=== PATIENT | female | born 1990 | race Two or more races ===

== ENCOUNTER → 2024-08-14 | Outpatient (CLI) | payer BC, SELFPAY | END | disposition home or self-care (01) | PROVIDERS: Referring Provider Family Medicine; Visit Provider Family Medicine | DX: N39.0 Urinary tract infection, site not specified (principal) | CPT/HCPCS: 87077; 87086; 87186 ==

== ENCOUNTER → 2024-08-19 | Outpatient (CLI) | payer BC, SELFPAY ==
[2024-08-19 10:53] LABS: Basophils # (Auto) 0.1 Thou/mm3 (0.0-0.2); Basophils % (Auto) 1 % (0-2.5); Eosinophils # (Auto) 0.2 Thou/mm3 (0.0-0.5); Eosinophils % (Auto) 5 % (0-10); Hemoglobin 12.6 g/dL (12.0-16.0); Immature Granulocytes % (Auto) 0 % (0-0); Immature Granulocytes Auto 0.01 Thou/mm3 (0.00-0.00); Lymphocytes # (Auto) 1.5 Thou/mm3 (1.0-4.8); Lymphocytes % (Auto) 33 % (10-50); Mean Corpuscular HGB Conc 32.3 g/dl (31.0-37.0); Mean Corpuscular Volume 74 fL (80-100); Monocytes # (Auto) 0.3 Thou/mm3 (0.0-0.8); Monocytes % (Auto) 7 % (0-12); Neutrophils # (Auto) 2.5 Thou/mm3 (1.8-7.7); Neutrophils % (Auto) 54 % (37-80); Nucleated Red Blood Cell % 0 /100 WBC (0); Platelet Count 271 Thou/mm3 (140-440); RDW Standard Deviation 39.6 fL (36.4-46.3); Red Blood Count 5.25 Miln/mm3 (4.00-5.20); White Blood Count 4.6 Thou/mm3 (3.6-11.0)
[2024-08-19 11:11] LABS: Vitamin D 25 Hydroxy Total 21.9 ng/mL (7.3-40.2)
[2024-08-19 11:24] LABS: Albumin, Serum 4.4 gm/dL (3.5-5.0); Albumin/Globulin Ratio 1.8 (1.2-2.2); Alkaline Phosphatase 68 U/L (46-116); Anion Gap 7 (7-16); Aspartate Amino Transferase 17 U/L (0-34); BUN/Creatinine Ratio 11 Ratio (12-20); Bilirubin,Total 0.5 mg/dL (0.3-1.2); Blood Urea Nitrogen 9 mg/dL (9-23); Calcium 9.3 mg/dL (8.3-10.6); Calcium (Corrected) 9.3 mg/dL (8.5-10.1); Carbon Dioxide 24.8 mMol/L (20.0-31.0); Chloride 110 mMol/L (98-107); Cholesterol 151 mg/dL (132-200); Creatinine (Component) 0.8 mg/dL (0.6-1.3); Free T4 (Free Thyroxine) 1.13 ng/dL (0.89-1.76); Globulin 2.4 gm/dL (2.3-3.5); Glucose 92 mg/dL (74-106); HDL Cholesterol 51 mg/dL (40-60); LDL Cholesterol,Calculated 81 mg/dL (0-130); Osmolality,Calculated 281 (275-295); Potassium 4.5 mMol/L (3.4-5.1); Sodium 142 mMol/L (136-145); Thyroid Stimulating Hormone 1.64 uIU/mL (0.55-4.78); Total Protein 6.8 gm/dL (5.7-8.2); Triglycerides 94 mg/dL (30-150); eGFR > 60 See Note
[2024-08-19 11:29] LABS: Alanine Aminotransferase 13 U/L (10-49)
== END | disposition home or self-care (01) ==
LOC: COPL 09:43
PROVIDERS: PCP Family Medicine; Referring Provider Family Medicine; Visit Provider Family Medicine
DX: Z13.1 Encounter for screening for diabetes mellitus (principal); E78.1 Pure hyperglyceridemia; E03.2 Hypothyroidism due to medicaments and other exogenous substances; D50.0 Iron deficiency anemia secondary to blood loss (chronic)
CPT/HCPCS: 36415; 80053; 80061; 82306; 84439; 84443; 85025

== ENCOUNTER → 2025-01-12 | Outpatient (CLI) | payer BC, SELFPAY ==
[2025-01-12 11:37] LABS: Basophils # (Auto) 0.0 Thou/mm3 (0.0-0.2); Basophils % (Auto) 1 % (0-2.5); Eosinophils # (Auto) 0.2 Thou/mm3 (0.0-0.5); Eosinophils % (Auto) 3 % (0-10); Hematocrit 40.6 % (36.0-46.0); Hemoglobin 13.1 g/dL (12.0-16.0); Immature Granulocytes Auto 0.02 Thou/mm3 (0.00-0.00); Lymphocytes # (Auto) 1.7 Thou/mm3 (1.0-4.8); Lymphocytes % (Auto) 28 % (10-50); Mean Corpuscular HGB Conc 32.3 g/dl (31.0-37.0); Mean Corpuscular Hemoglobin 24.3 pg (25.0-35.0); Mean Corpuscular Volume 76 fL (80-100); Monocytes # (Auto) 0.4 Thou/mm3 (0.0-0.8); Monocytes % (Auto) 6 % (0-12); Neutrophils # (Auto) 3.8 Thou/mm3 (1.8-7.7); Neutrophils % (Auto) 63 % (37-80); Nucleated Red Blood Cell # 0.00 Thou/mm3 (0.00-0.00); Nucleated Red Blood Cell % 0 /100 WBC (0); Platelet Count 243 Thou/mm3 (140-440); RDW Standard Deviation 41.3 fL (36.4-46.3); Red Blood Count 5.38 Miln/mm3 (4.00-5.20); White Blood Count 6.0 Thou/mm3 (3.6-11.0)
[2025-01-12 11:56] LABS: Alanine Aminotransferase 12 U/L (10-49); Albumin, Serum 4.5 gm/dL (3.5-5.0); Albumin/Globulin Ratio 1.7 (1.2-2.2); Alkaline Phosphatase 64 U/L (46-116); Anion Gap 6 (7-16); Aspartate Amino Transferase 18 U/L (0-34); BUN/Creatinine Ratio 11 Ratio (12-20); Bilirubin,Total 0.5 mg/dL (0.3-1.2); Blood Urea Nitrogen 10 mg/dL (9-23); Calcium 9.2 mg/dL (8.3-10.6); Calcium (Corrected) 9.2 mg/dL (8.5-10.1); Carbon Dioxide 23.5 mMol/L (20.0-31.0); Cardiac Risk Estimate 3.5 RATIO (3.7-5.6); Chloride 111 mMol/L (98-107); Cholesterol 154 mg/dL (132-200); Creatinine (Component) 0.9 mg/dL (0.6-1.3); Free T4 (Free Thyroxine) 1.09 ng/dL (0.89-1.76); Globulin 2.6 gm/dL (2.3-3.5); Glucose 100 mg/dL (74-106); HDL Cholesterol 44 mg/dL (40-60); LDL Cholesterol,Calculated 90 mg/dL (0-130); Osmolality,Calculated 278 (275-295); Potassium 4.3 mMol/L (3.4-5.1); Sodium 140 mMol/L (136-145); Thyroid Stimulating Hormone 1.59 uIU/mL (0.55-4.78); Total Protein 7.1 gm/dL (5.7-8.2); Triglycerides 102 mg/dL (30-150); eGFR > 60 See Note
== END | disposition home or self-care (01) ==
LOC: COPL 10:48
PROVIDERS: PCP Family Medicine; Referring Provider Family Medicine; Visit Provider Family Medicine
DX: Z13.1 Encounter for screening for diabetes mellitus (principal); D50.0 Iron deficiency anemia secondary to blood loss (chronic); E03.2 Hypothyroidism due to medicaments and other exogenous substances; E78.1 Pure hyperglyceridemia
CPT/HCPCS: 36415; 80053; 80061; 84439; 84443; 85025

== ENCOUNTER → 2025-01-20 | Outpatient (CLI) | payer BC, SELFPAY | END | disposition home or self-care (01) | LOC: SLDO 14:35 | PROVIDERS: PCP Family Medicine; Referring Provider Family Medicine; Visit Provider Family Medicine | DX: N39.0 Urinary tract infection, site not specified (principal) | CPT/HCPCS: 87086 ==

== ENCOUNTER → 2025-01-29 | Outpatient (BNVA) | payer BC, SELFPAY | END | disposition home or self-care (01) | PROVIDERS: PCP Family Medicine; Referring Provider Family Medicine; Visit Provider Urology | DX: G89.4 Chronic pain syndrome (principal); R10.2 Pelvic and perineal pain; R33.9 Retention of urine, unspecified; R35.0 Frequency of micturition; R35.1 Nocturia; I35.0 Nonrheumatic aortic (valve) stenosis | CPT/HCPCS: 81003; 99212; G0463 ==

== ENCOUNTER → 2025-02-12 | Outpatient (CLI) | payer BC, SELFPAY ==
[2025-02-12 11:46] LABS: Basophils # (Auto) 0.1 Thou/mm3 (0.0-0.2); Basophils % (Auto) 1 % (0-2.5); Eosinophils # (Auto) 0.2 Thou/mm3 (0.0-0.5); Eosinophils % (Auto) 3 % (0-10); Hematocrit 38.9 % (36.0-46.0); Hemoglobin 12.7 g/dL (12.0-16.0); Immature Granulocytes Auto 0.03 Thou/mm3 (0.00-0.00); Lymphocytes # (Auto) 1.7 Thou/mm3 (1.0-4.8); Lymphocytes % (Auto) 28 % (10-50); Mean Corpuscular HGB Conc 32.6 g/dl (31.0-37.0); Mean Corpuscular Hemoglobin 24.5 pg (25.0-35.0); Mean Corpuscular Volume 75 fL (80-100); Monocytes # (Auto) 0.4 Thou/mm3 (0.0-0.8); Monocytes % (Auto) 7 % (0-12); Neutrophils # (Auto) 3.7 Thou/mm3 (1.8-7.7); Neutrophils % (Auto) 61 % (37-80); Nucleated Red Blood Cell # 0.00 Thou/mm3 (0.00-0.00); Nucleated Red Blood Cell % 0 /100 WBC (0); Platelet Count 363 Thou/mm3 (140-440); RDW Standard Deviation 41.3 fL (36.4-46.3); Red Blood Count 5.19 Miln/mm3 (4.00-5.20); White Blood Count 6.1 Thou/mm3 (3.6-11.0)
== END | disposition home or self-care (01) ==
LOC: COPL 10:57
PROVIDERS: PCP Family Medicine; Referring Provider Family Medicine; Visit Provider Family Medicine
DX: A41.51 Sepsis due to Escherichia coli [E. coli] (principal)
CPT/HCPCS: 36415; 85025; 87040

== ENCOUNTER 2025-02-25 06:30 | Day surgery (SDC) | payer BC, SELFPAY ==
[2025-02-24 14:47] VITALS: BMI 31.3
[2025-02-24 17:37] LABS: HCG,Qualitative Serum Negative
[2025-02-24 22:23] LABS: Anion Gap 10 (7-16); BUN/Creatinine Ratio 9 Ratio (12-20); Blood Urea Nitrogen 9 mg/dL (9-23); Calcium 9.4 mg/dL (8.3-10.6); Carbon Dioxide 25.1 mMol/L (20.0-31.0); Chloride 107 mMol/L (98-107); Creatinine (Component) 1.0 mg/dL (0.6-1.3); Estimated Creatinine Clearance 82.5 mL/min (>60); Glucose 89 mg/dL (74-106); Osmolality,Calculated 280 (275-295); Potassium 4.0 mMol/L (3.4-5.1); Sodium 142 mMol/L (136-145); eGFR > 60 See Note
[2025-02-25] VITALS (8 sets, daily range): BP systolic 126–151; BP diastolic 95–106; PULSE 85–98; RESP 12–21; TEMP 36.6–37.1; O2SAT 97–100; BMI 31.4
--- NOTE | 2025-02-25 07:17 | XR_ITS ---
Examination: Retrograde pyelogram left, with without KUB 4 spot fluoroscopic abdomen films Fluoroscopy Date and time: February 25, 2025 0932 hours INDICATIONS: History abdominal pain flank pain, 4 mm lower pole left renal calculus on abdomen film 03/11/2024, stone manipulation and stent placement FINDINGS: Opacification of mildly dilated left renal collecting system Left ureteral stent satisfactory position Fluoroscopy 38 seconds radiation dose 8.37 milligray IMPRESSION: Left retrograde pyelogram as above
--- NOTE | 2025-02-25 07:30 | CHAP ---
Patient was very nervous. Gave words of assurance and prayer.
[2025-02-25] MEDS: VANCOMYCIN/NS 1 GM IVPB 200 ML IV (07:46)
[2025-02-25] MEDS: RINGERS LACTATED 1000 ML 1,000 ML 20 ML IV (07:50)
--- NOTE | 2025-02-25 10:10 | SUR.PHASEI ---
1010 Patient arrived to recovery resting comfortably in [facility], drowsy and able to arouse with verbal prompting, on oxygen 4L via nasal cannula, breathing unlabored, vital signs stable, denies pain and nausea, report received from Tang MARES and Dr. Roy
--- NOTE | 2025-02-25 10:49 | PD.SUROPNT ---
Date of Procedure 02/25/25 Pre Op Diagnosis Left flank pain, 5 mm stone left distal ureter, left hydronephrosis, chronic pelvic pain syndrome Post Op Diagnosis Same plus early changes of interstitial cystitis, impacted stone left distal ureter Procedure Cystoscopic examination Magness dilation for diagnostic and therapeutic purposes, left retrograde pyelogram, placement of safety wire left, laser stone fragmentation, stone basketing and stent placement left under fluoroscopic examination Findings Impacted stone left distal ureter, left hydronephrosis Procedure Description Indication for procedure this is a 35-year-old female, she has a history of pelvic discomfort with the frequency for 5 weeks duration she had gone to the emergency room in [facility] had a CAT scan of the abdomen and pelvis done she was found to have 5 to 6 mm stone distal ureter with hydronephrosis. Patient bacteremia a urine cultures have grown E. coli she was treated with antibiotics. Patient came to see me she was recommended cystoscopic examination left retrograde pyelogram ureteroscopy laser stone fragmentation placement of the stent procedure and complications were discussed with the patient in great detail informed consent is obtained Procedure patient was brought to the operating room in a satisfactory condition after appropriate premedication she was appropriately identified by surgeon operating room staff site scope and indication of the procedure were reconfirmed with the patient informed consent is obtained. Patient was placed operating table in a supine position general anesthesia was given uneventfully at this time patient received perioperative antibiotics and a 20 mg of Lasix IV was given for diuresis and prevention of pyelocalyceal infectious complications. 21 cystoscope was used to do the cystourethroscopy urethra revealed no stricture Bladder was filled with 300 cc of water drained cystoscope was done again there was early changes of interstitial cystitis. Next examination of bladder and of the quadrant revealed no tumor stone or diverticula. There was a efflux of clear urine from the right side there was no urine coming out of the left side. Next I passed the open-ended Pollick catheter into left ureteral orifice. It will not go beyond the stone. I was able to place a safety wire into the upper pole calyx. Open-ended Pollick catheter was removed. Next I passed the semirigid ureteroscope I was able to visualize the stone and dislodge it. With the 200 ?m laser fiber I was able to fragment the stone into multiple pieces. With the stone basketing I was able to remove stone fragmentation about 10 passes were made to get the stone fragments out. Next retrograde pyelogram was performed to assess the integrity of the collecting system there was no injury identified. Next over the safety wire I placed 24 cm long 6 Portuguese double-J stent proximal and in the renal pelvis and distal and in the bladder bladder was emptied instrument was withdrawn gently patient after having tolerated the procedure well was discharged home to be followed in urology office for stent removal Anesthesia GETA Pathology / specimen None Estimated Blood Loss 0.2 Condition Stable Disposition PACU Surgeon Julianne Garcia MD Surgical Staff Operation Date: 02/25/25 08:30 Case Staff Anesthesiologist: Kd Roy
--- NOTE | 2025-02-25 11:22 | SUR.PHASEII ---
1122 Patient meets discharge criteria from recovery, awake and alert, breathing unlabored, vital signs stable, denies pain, eating ice chips; denies nausea, voided in the restroom prior to discharge, assisted with dressing into her clothing by her , discharge instructions given to patient, patients mother and , signed discharge instructions. Patient given all her belongings prior to discharge, transported via wheelchair and left in a private vehicle.
== END 2025-02-25 11:22 | disposition home or self-care (01) ==
PROVIDERS: Anesthesiology; PCP Family Medicine; Referring Provider Urology; Visit Provider Urology
PROC: 0TJB8ZZ Inspection of Bladder, Via Natural or Artificial Opening Endoscopic (ICD-10-PCS; CPT 52000; principal; 2025-02-25 08:30)
DX: N13.2 Hydronephrosis with renal and ureteral calculous obstruction (principal); N30.10 Interstitial cystitis (chronic) without hematuria
CPT/HCPCS: 52356; 36415; 74420; 80048; 82365; 84703; A4217; A4649; C1769; C1889; C1894; C2617; J0131; J1100; J1580; J1938; J2250; J2371; J2704; J2765; J3010; J3373; J3490; J7120; J1805

== ENCOUNTER 2025-02-26 02:18 | Emergency (ER) | payer BC, SELFPAY ==
[2025-02-26 02:19] VITALS: BMI 31.2
[2025-02-26 02:53] VITALS: BP 137/91; PULSE 91; RESP 17; TEMP 36.8; O2SAT 98
--- NOTE | 2025-02-26 02:54 | PD.EDABDPN ---
ED Abdominal Pain RME/HPI General Chief Complaint: Abdominal Pain Stated complaint: ABD PAIN, HX KIDNEY STONES W STENT PLACED 02/25 Time seen by provider: 02/26/25 02:59 Arrival date/time: 02/26/25 02:18 RME / HPI RME / HPI narrative: See MDM for Dr. Cho's HPI documentation. Related Data Previous Rx's ?Medication ?Instructions ?Recorded acetaminophen 300 mg-codeine 30 mg 2 tab PO Q8H PRN pain #20 tabs 02/26/25 tablet ketorolac 10 mg tablet 10 mg PO Q8H PRN pain 5 days #10 02/26/25 tabs ondansetron 4 mg disintegrating 4 mg PO TID PRN nausea and 02/26/25 tablet vomiting 30 days #10 tabs Allergies Allergy/AdvReac Type Severity Reaction Status Date / Time pseudoephedrine Allergy Unknown RACING Verified 02/27/25 09:04 HEART Review of Systems Review of Systems Systems Reviewed: All systems reviewed, normal except as documented Past Medical History Past Medical History NEUROLOGIC: Negative Neurological Disorders or Seizures CARDIAC: Positive Cardiac Disorders (congenital aortic stenosis); Negative Congestive Heart Failure RESPIRATORY: Negative Chronic Obstructive Pulmonary Disease (COPD) GASTROINTESTINAL: Negative Gastrointestinal Disorders GENITOURINARY: Positive Genitourinary Disorders and Kidney Stones; Negative Renal Disease REPRODUCTIVE: Positive Previous Pregnancies MUSCULOSKELETAL: Negative Musculoskeletal Disorders ENDOCRINE: Negative Endocrine Disorders, Diabetes Mellitus Type 1 or Diabetes Mellitus Type 2 HEMATOLOGIC: Negative Blood Disorders PSYCHO/SOCIAL: Positive Anxiety (no medications) OTHER HISTORY: Negative Autoimmune Disease, Falls, Blood Transfusions, Blood Transfusion Reaction, Anesthesia Reactions or Cancer Family History FAMILY HISTORY: Positive Family Psychiatric Problems (Mother anxiety), Family Gastrointestinal Problems (Mother GERD) and Family Cancer (Dad prostate, Mom skin); Negative Family Respiratory Disorders, Family Cardiac Disorders or Family Anesthesia Reaction Social History SMOKING STATUS: Never smoker ED Exam Narrative Physical exam: See MDM for Dr. Cho's physical exam documentation. Course Quality Measures none Orders Category Date Time Status CT Screening NOW Care 02/26/25 03:01 Completed Saline [Insert IV] NOW Care 02/26/25 03:01 Completed Straight [In and Out Catheter] X1 Care 02/26/25 03:01 Completed Amylase Stat Lab 02/26/25 03:11 Completed Bilirubin,Direct Stat Lab 02/26/25 03:11 Completed Blood Culture (Lab) Stat Lab 02/26/25 03:14 Results CBC Stat Lab 02/26/25 03:11 Completed CMP [Comprehensive Metabolic Panel] Stat Lab 02/26/25 03:11 Completed CRP [C-Reactive Protein] Stat Lab 02/26/25 03:11 Completed ESR [Sed Rate (ESR)] Stat Lab 02/26/25 03:11 Completed HCG,Qualitative Serum Stat Lab 02/26/25 03:11 Completed Lactate (Lactic Acid) Stat Lab 02/26/25 03:11 Completed Lipase Stat Lab 02/26/25 03:11 Completed Magnesium Stat Lab 02/26/25 03:11 Completed Procalcitonin Stat Lab 02/26/25 03:11 Completed HYDROmorphone INJ [Dilaudid Inj] Med 02/26/25 03:01 Discontinued 1 mg IVP X1 ONE Ketorolac Inj [Toradol Inj] Med 02/26/25 03:15 Discontinued 30 mg IVP X1 ONE Ondansetron Inj [Zofran Inj] Med 02/26/25 03:01 Discontinued 4 mg IVP X1 ONE Sodium Chloride 0.9% 1000 ml [Ns] 1,000 ml Med 02/26/25 03:01 Discontinued IV 999 mls/hr Vital Signs Vital signs: Vital Signs Temperature 98.2 F 02/26/25 02:53 Pulse Rate 91 02/26/25 02:53 Respiratory Rate 17 02/26/25 02:53 Blood Pressure 137/91 H 02/26/25 02:53 Pulse Oximetry (%) 98 02/26/25 02:53 Oxygen Delivery Method Room Air 02/26/25 02:53 Abdominal Pain MDM MDM Narrative MDM Narrative:: This section includes all my notes and documentations, including HPI, PE, and ED course. Fernando Cho MD HPI: 35yo female who had left ureteral stent placed yesterday by Dr. Garcia here with left flank pain for the last few hours. No nausea, vomiting, or fever. No other complaints reported. ROS: All negative except as documented in HPI. Physical Exam: General: Alert and oriented. Appears to be in severe pain. Eyes: Conjunctivae and lids clear. ENT: No nasal congestion. Neck: Supple. Heart: RRR. Lungs: No respiratory distress. Good air movement. No rhonchi, wheezing, rales. Abdomen: Soft and left-sided abdominal tenderness. Normal bowel sounds. No distension. No rebound or guarding. Back: No CVA tenderness. Skin: Warm and dry. Neuro: Alert and oriented X 3. Blood tests unremarkable. Patient declined abdominal CT. Discussed potential risks, including missing important diagnoses and even sudden . She understood and still declined. Couldn't change her mind. She didn't provide urine specimen. Didn't want to wait further. At this point, diagnoses include: Left flank pain Treatment here included: Toradol Zofran IV fluid She felt much better. Recommended more outpatient workup. Based on my best medical judgment, made decision no further evaluation or treatment indicated at this time. Patient understands and agrees to the discharge instructions customized and printed, see below. Discharge Instructions from Dr. Cho printed for you: 1. Your left flank pain is probably due to spasms from your recent stent placement yesterday. 2. Blood complete evaluation was not performed as you have declined CT scan. 3. Toradol and Tylenol with codeine for pain. 4. Zofran for nausea/vomiting. 5. To flush your kidneys, increase oral fluid and maintain clear urine. If dark or yellow, increase oral fluid. 6. See your urologist on 02/27/2025 for recheck and further care. Ask to review all test results and official radiology reports, to make sure you receive all necessary follow-ups and monitoring. At minimum, call your urologist and let them know what happened and ask for further instructions. 7. Seek immediate medical care with worsening or with any concerns. Fernando Cho MD Patient data External records reviewed:: [facility] previous records (Per chart review, patient had a left ureteral stent placed yesterday.) Clinical information provided by:: patient Social determinants that could affect healthcare access:: none Patient has the following chronic illnesses:: none How is presenting disease/condition affected by chronic disease/condition?: no chronic disease Evaluation data The following diagnostics were reviewed and interpreted by me:: lab results Lab and/or radiology exams considered but not ordered:: none Interpretation Summary: Blood tests unremarkable. Patient declined abdominal CT. Discussed potential risks, including missing important diagnoses and even sudden . She understood and still declined. Couldn't change her mind. She didn't provide urine specimen. Didn't want to wait further. Medications / Prescriptions Medications or Prescriptions considered but not ordered:: none Medication administrations:: Medication Administration History Discontinued Medications Hydromorphone HCl (Hydromorphone Inj 2 Mg/Ml Vial) 1 mg IVP X1 ONE Stop: 02/26/25 03:02 Last Admin: 02/26/25 04:53 Dose: Not Given Documented By: DT Non-Admin Reason: Patient Refused Sodium Chloride (Ns) 1,000 mls @ 999 mls/hr IV .Q1H1M ONE Stop: 02/26/25 04:01 Last Infusion: 02/26/25 04:53 Dose: Infused Documented By: Admin: 02/26/25 03:32 Dose: 999 mls/hr Documented By: CVL Ketorolac Tromethamine (Ketorolac Inj 30 Mg/Ml Vial) 30 mg IVP X1 ONE Stop: 02/26/25 03:16 Last Admin: 02/26/25 03:31 Dose: 30 mg Documented By: CVL Ondansetron HCl (Ondansetron Inj 2 Mg/Ml Inj 2 Ml) 4 mg IVP X1 ONE; Protocol Stop: 02/26/25 03:02 Last Admin: 02/26/25 03:29 Dose: 4 mg Documented By: CVL Toradol, Zofran, IV fluid Consultations Consultation(s) initiated? (list below): No Diagnosis Differential diagnosis abdominal pain: acute appendicitis, calculus of kidney, constipation, diverticulitis, endometriosis, gastroenteritis, pancreatitis and small bowel obstruction Most likely diagnosis given after review of the tests above:: Left flank pain Admission Indicated Admission indicated?: not indicated Explain why admission is indicated or not indicated:: With significant improvement and no condition needing emergent intervention, there was no indication for admission. Admission Request Was there a request for admission?: No Disposition Plan Disposition Plan: Discharge Discharge Attestation Discharge Attestation: The patient and all family members were given an opportunity to ask questions and understood the discharge instructions. Discharge instructions specifically effects, indications for sooner follow up or return to the emergency department, and the expected course of current diagnosis. Patient condition: Stable Discharge Plan Plan Patient Disposition: HOME (Self Care) Prescriptions/Referrals Prescriptions/Med Rec: New acetaminophen-codeine 300-30 mg tablet 2 tab PO Q8H MDD 6 PRN (Reason: pain) Qty: 20 0RF ketorolac 10 mg tablet 10 mg PO Q8H PRN (Reason: pain) 5 Days Qty: 10 0RF ondansetron 4 mg tablet,disintegrating 4 mg PO TID PRN (Reason: nausea and vomiting) 30 Days Qty: 10 0RF Referrals: Dl Correa MD [Primary Care Provider, Family Practice] - In 1 week Problem List Clinical Impression: Left flank pain Patient/Caregiver Discharge Instructions Discharge Activity: activity as tolerated Education Materials: ED Flank Pain, Uncertain Cause Additional Instructions: Discharge Instructions from Dr. Cho printed for you: 1. Your left flank pain is probably due to spasms from your recent stent placement yesterday. 2. Blood complete evaluation was not performed as you have declined CT scan. 3. Toradol and Tylenol with codeine for pain. 4. Zofran for nausea/vomiting. 5. To flush your kidneys, increase oral fluid and maintain clear urine. If dark or yellow, increase oral fluid. 6. See your urologist on 02/27/2025 for recheck and further care. Ask to review all test results and official radiology reports, to make sure you receive all necessary follow-ups and monitoring. At minimum, call your urologist and let them know what happened and ask for further instructions. 7. Seek immediate medical care with worsening or with any concerns. Print Language: Irish Stand Alone Forms: Leonie Award Info., Patient Portal Info Letter
[2025-02-26 03:21] LABS: Lactate (Lactic Acid) 1.1 mMol/L (0.4-2.0)
[2025-02-26 03:26] LABS: Sed Rate (ESR) 18 mm/hr (0-20)
[2025-02-26 03:28] LABS: Basophils # (Auto) 0.0 Thou/mm3 (0.0-0.2); Basophils % (Auto) 0 % (0-2.5); Eosinophils # (Auto) 0.0 Thou/mm3 (0.0-0.5); Eosinophils % (Auto) 1 % (0-10); Hematocrit 37.5 % (36.0-46.0); Hemoglobin 12.3 g/dL (12.0-16.0); Immature Granulocytes Auto 0.03 Thou/mm3 (0.00-0.00); Lymphocytes # (Auto) 1.7 Thou/mm3 (1.0-4.8); Lymphocytes % (Auto) 20 % (10-50); Mean Corpuscular HGB Conc 32.8 g/dl (31.0-37.0); Mean Corpuscular Hemoglobin 24.6 pg (25.0-35.0); Mean Corpuscular Volume 75 fL (80-100); Monocytes # (Auto) 0.7 Thou/mm3 (0.0-0.8); Monocytes % (Auto) 8 % (0-12); Neutrophils # (Auto) 6.1 Thou/mm3 (1.8-7.7); Neutrophils % (Auto) 71 % (37-80); Nucleated Red Blood Cell # 0.00 Thou/mm3 (0.00-0.00); Nucleated Red Blood Cell % 0 /100 WBC (0); Platelet Count 255 Thou/mm3 (140-440); RDW Standard Deviation 41.1 fL (36.4-46.3); Red Blood Count 5.00 Miln/mm3 (4.00-5.20); White Blood Count 8.6 Thou/mm3 (3.6-11.0)
[2025-02-26] MEDS: ONDANSETRON INJ 2 MG/ML INJ 2 ML 4 MG IVP (03:29)
[2025-02-26] MEDS: KETOROLAC INJ 30 MG/ML VIAL IVP (03:31)
[2025-02-26] MEDS: SODIUM CHLORIDE 0.9% 1000 ML 1,000 ML 999 ML IV (03:32)
[2025-02-26 03:38] LABS: HCG,Qualitative Serum Negative
[2025-02-26 03:48] LABS: Alanine Aminotransferase 7 U/L (10-49); Albumin, Serum 4.7 gm/dL (3.5-5.0); Albumin/Globulin Ratio 2.0 (1.2-2.2); Alkaline Phosphatase 68 U/L (46-116); Amylase 62 U/L (30-118); Anion Gap 12 (7-16); Aspartate Amino Transferase 16 U/L (0-34); BUN/Creatinine Ratio 9 Ratio (12-20); Bilirubin,Direct 0.2 mg/dL (0.0-0.3); Bilirubin,Total 0.6 mg/dL (0.3-1.2); Blood Urea Nitrogen 8 mg/dL (9-23); Calcium 9.8 mg/dL (8.3-10.6); Calcium (Corrected) 9.8 mg/dL (8.5-10.1); Carbon Dioxide 21.0 mMol/L (20.0-31.0); Chloride 106 mMol/L (98-107); Creatinine (Component) 0.9 mg/dL (0.6-1.3); Estimated Creatinine Clearance 91.5 mL/min (>60); Globulin 2.4 gm/dL (2.3-3.5); Glucose 97 mg/dL (74-106); Magnesium 2.0 mg/dL (1.6-2.6); Osmolality,Calculated 275 (275-295); Potassium 3.7 mMol/L (3.4-5.1); Sodium 139 mMol/L (136-145); Total Protein 7.1 gm/dL (5.7-8.2); eGFR > 60 See Note
[2025-02-26 03:49] LABS: C-Reactive Protein < 0.5 mg/dL (0.0-0.9)
[2025-02-26 03:54] LABS: Procalcitonin 0.07 ng/ml (0.0-0.49)
[2025-02-26 04:54] VITALS: BP 128/86; PULSE 85; RESP 14; TEMP 37; O2SAT 99
== END 2025-02-26 04:54 | disposition home or self-care (01) ==
PROVIDERS: Emergency Provider Emergency Medicine; PCP Family Medicine
DX: R10.9 Unspecified abdominal pain (principal)
CPT/HCPCS: 36415; 80053; 81001; 82150; 82248; 83605; 83690; 83735; 84145; 84703; 85025; 85652; 86140; 87040; 96361; 96374; 96375; 99284; J1885; J2405; J7030

== ENCOUNTER → 2025-02-27 | Outpatient (BNVA) | payer BC, SELFPAY ==
--- NOTE | 2025-02-28 10:06 | ESPR_ITS ---
Documentation for date of: 02/28/25 POST ANESTHESIA NOTE: Patient had GETA for urologic procedure on 02/25/25. I just called and spoke with her on the phone and she reported having some on/off nausea but did not report any other associated sx. She specifically denied abdominal pain, vomiting, fever and inability to tolerate oral intake and she reported she has been eating and drinking. I educated her that sometimes, especially in young females, PONV can last long like 3 days, and I educated her to just watch her sx for now and consider going to ER if it's persistent or if she develops more sx. She also reported having difficulty sleeping the first night post op and I educated her that unlikely related to anesthesia and probabl y due to her underlying sleep disturband and she should discuss that with her PCP. She attributed it to her anxiety. She had no further questions for me and was thankful and complimentary. Kd Roy MD
== END | disposition home or self-care (01) ==
PROVIDERS: PCP Family Medicine; Referring Provider Family Medicine; Visit Provider Urology
DX: N20.1 Calculus of ureter (principal); Z96.0 Presence of urogenital implants
CPT/HCPCS: 52310; 81003; 96372; A4217; A4649; C1894; J1580; A9270

== ENCOUNTER → 2025-05-29 | Outpatient (BNVA) | payer BC, SELFPAY | END | disposition home or self-care (01) | PROVIDERS: PCP Family Medicine; Referring Provider Family Medicine; Visit Provider Urology | DX: N20.1 Calculus of ureter (principal); Z87.440 Personal history of urinary (tract) infections | CPT/HCPCS: 99212; G0463 ==

== ENCOUNTER 2025-06-01 12:05 | Day surgery (SDC) | payer BC, SELFPAY ==
[2025-05-29 15:25] LABS: HCG Qualitative,Urine Negative
[2025-06-01] VITALS (10 sets, daily range): BP systolic 131–150; BP diastolic 89–105; PULSE 84–111; RESP 15–23; TEMP 36.2–36.9; O2SAT 99–100; BMI 32.1
[2025-06-01] MEDS: SODIUM CHLORIDE 0.9% 500 ML 500 ML 20 ML IV (13:55)
[2025-06-01] MEDS: fentaNYL CIT INJ 50 mCg/ML AMP 2ML (ASD USE ONLY) IVP (14:04)
[2025-06-01] MEDS: MIDAZOLAM INJ 1 MG/ML VIAL 2 ML (ASD USE ONLY) IVP (14:04)
== END 2025-06-01 15:00 | disposition home or self-care (01) ==
PROVIDERS: PCP Family Medicine; Referring Provider Specialist; Visit Provider Specialist
PROC: 0DBE8ZX Excision of Large Intestine, Via Natural or Artificial Opening Endoscopic, Diagnostic (ICD-10-PCS; CPT 45380; principal; 2025-06-01 11:15)
DX: K64.2 Third degree hemorrhoids (principal); I35.0 Nonrheumatic aortic (valve) stenosis
CPT/HCPCS: 45398; 81025; A4649; J1200; J2250; J3010; J7999